=== PATIENT | male | born 1990 | race Caucasian/White ===

== ENCOUNTER 2019-09-06 02:10 | Emergency (ER) | payer OTHER ==
[~2019-09-06] VITALS: Ht 167.6 cm; Wt 78.0 kg
[2019-09-06 02:15] VITALS: BP 153/95
[2019-09-06] MEDS ORDERED: LIDOCAINE/EPI 1% 1:100000 20 ML VIAL INJ ONE (02:40)
[2019-09-06] MEDS ORDERED: BACITRACIN OINT 500 UNITS/GM PKT TP ONE (02:40)
[2019-09-06 04:00] VITALS: BP 153/95
== END 2019-09-06 04:01 | disposition home or self-care (01) ==
LOC: MED 02:10
DX: S61.412A Laceration without foreign body of left hand, initial encounter (principal); Z23 Encounter for immunization; W26.0XXA Contact with knife, initial encounter; Y93.89 Activity, other specified; Y92.89 Other specified places as the place of occurrence of the external cause; Y99.8 Other external cause status
CPT/HCPCS: 12004; 90471; 90715; 99283; J2001